=== PATIENT | male | born 1965 | race Two or more races ===

== ENCOUNTER 2020-04-14 11:54 | Inpatient (IN) | payer OTHER ==
[~2020-04-14] VITALS: Ht 188 cm; Wt 100.7 kg
[~2020-04-14 11:54] MED LIST: INTESTINEX680 MG PO; OXYC1TAB9 PO; PROTONIX40 MG PO; TAMS0.4C PO
== END 2020-04-19 20:38 | disposition home or self-care (01) | DRG 812 ==
LOC: ER 11:54 → MEDJ 18:58 → SEC-K 18:58 → MEDJ 23:30
PROVIDERS: ADMIT Internal Medicine; ATTEND Internal Medicine
PROC: 3E0F7GC Introduction of Other Therapeutic Substance into Respiratory Tract, Via Natural or Artificial Opening (ICD-10-PCS; 2020-04-14)
PROC: 30233N1 Transfusion of Nonautologous Red Blood Cells into Peripheral Vein, Percutaneous Approach (ICD-10-PCS; 2020-04-15)
PROC: BB24ZZZ Computerized Tomography (CT Scan) of Bilateral Lungs (ICD-10-PCS; principal; 2020-04-16)
PROC: BW21Y0Z Computerized Tomography (CT Scan) of Abdomen and Pelvis using Other Contrast, Unenhanced and Enhanced (ICD-10-PCS; 2020-04-16)
PROC: 8E0ZXY6 Isolation (ICD-10-PCS; 2020-04-17)
DX: D50.9 Iron deficiency anemia, unspecified (principal); D63.8 Anemia in other chronic diseases classified elsewhere; J45.20 Mild intermittent asthma, uncomplicated; Z03.818 Encounter for observation for suspected exposure to other biological agents ruled out; Z08 Encounter for follow-up examination after completed treatment for malignant neoplasm; Z85.038 Personal history of other malignant neoplasm of large intestine

== ENCOUNTER 2020-06-03 09:10 | Day surgery (SDC) | payer OTHER | END 2020-06-03 13:10 | disposition home or self-care (01) | LOC: AMB-ENDOS 09:10 | PROVIDERS: ATTEND Surgery | DX: K62.89 Other specified diseases of anus and rectum (principal); Z93.3 Colostomy status; Z20.828 Contact with and (suspected) exposure to other viral communicable diseases ==

== ENCOUNTER 2020-06-26 06:05 | Day surgery (SDC) | payer OTHER ==
[2020-06-26] MEDS ORDERED: ULTRACET PO (08:08)
== END 2020-06-26 11:30 | disposition home or self-care (01) ==
LOC: CIR.AMB 06:05
PROVIDERS: ATTEND Surgery
DX: C20 Malignant neoplasm of rectum (principal); Z20.828 Contact with and (suspected) exposure to other viral communicable diseases
CPT/HCPCS: 36561; C1751

== ENCOUNTER 2020-07-29 10:48 | Emergency (ER) | payer OTHER ==
[~2020-07-29] VITALS: Ht 188 cm; Wt 97.1 kg
[~2020-07-29 10:48] MED LIST changes: +ULTRACET PO
[2020-07-29] MEDS ORDERED: LOSARTAN POTASS50 MG (11:13)
[2020-07-29] MEDS ORDERED: FOLIC ACID1 MG (11:14)
[2020-07-29] MEDS ORDERED: FERRO-TIME325 MG (11:15)
== END 2020-07-29 19:52 | disposition home or self-care (01) ==
LOC: ER 10:48
DX: R11.2 Nausea with vomiting, unspecified (principal); R10.13 Epigastric pain; C18.9 Malignant neoplasm of colon, unspecified; Z03.818 Encounter for observation for suspected exposure to other biological agents ruled out

== ENCOUNTER 2021-05-13 16:46 | Emergency (ER) | payer OTHER ==
[~2021-05-13] VITALS: Ht 188 cm; Wt 99.8 kg
[~2021-05-13 16:46] MED LIST changes: +FERRO-TIME325 MG; +FOLIC ACID1 MG; +LOSARTAN POTASS50 MG
[2021-05-13] MEDS ORDERED: PERCOCET 5-3251 EACH PO (22:24)
== END 2021-05-13 22:36 | disposition home or self-care (01) ==
LOC: ER 16:46
DX: K62.89 Other specified diseases of anus and rectum (principal); C18.9 Malignant neoplasm of colon, unspecified; K43.5 Parastomal hernia without obstruction or gangrene; N20.0 Calculus of kidney; N28.1 Cyst of kidney, acquired
CPT/HCPCS: 74160; Q9965

== ENCOUNTER 2023-09-30 14:24 | Emergency (ER) | payer OTHER ==
[~2023-09-30] VITALS: Ht 188 cm; Wt 86.2 kg
[~2023-09-30 14:24] MED LIST changes: +PERCOCET 5-3251 EACH PO
[2023-09-30] MEDS ORDERED: B12 ACTIVE1000 MCG (15:15)
[2023-09-30] MEDS ORDERED: AMOX1TAB5 (15:15)
[2023-09-30 16:41] LABS: HEMATOCRIT 37.2 % (39.0-48.0); HEMOGLOBIN 12.4 g/dL (13-16.00); MEAN CELL VOLUME 83.1 fL (80.0-100.00); MEAN CORPUSCULAR HEMOGLOBIN 27.7 pg (27.00-32.0); MEAN CORPUSCULAR HGB CONC 33.3 g/dl (32.0-36.0); PLATELET COUNT 332 K/uL (150-450); RED BLOOD COUNT 4.48 M/uL (4.00-6.00); RED CELL DISTRIBUTION WIDTH 14.6 % (11.5-14.5)
[2023-09-30 17:09] LABS: ALBUMIN 3.1 gm/dL (3.4-5.0); BILIRUBIN TOTAL 0.3 mg/dL (0.3-1.2); CALCIUM 9.6 mg/dL (8.5-10.1); CREATININE SERUM 1.05 mg/dL (0.70-1.30); GFR 72.54; POTASSIUM 4.31 mEq/L (3.5-5.1); TOTAL PROTEIN 8.1 gm/dL (6.4-8.2)
[2023-09-30 17:45] LABS: PH,URINE 6.5 (5.0-8.0); URINE APPEARANCE Clear; URINE BILIRRUBIN Negative (NEGATIVE); URINE BLOOD Negative; URINE COLOR Dark Yellow; URINE GLUCOSE Negative (NEGATIVE); URINE LEUKOCYTE Negative; URINE NITRATE Negative; URINE PROTEIN Negative (NEGATIVE)
[2023-09-30 17:49] LABS: URINE BACTERIA 13.8 uL (0.0-1933); URINE EPITHELIAL CELLS 3.7 uL (0.0-38.8); URINE RBC 14.9 uL (0.0-20.8); URINE WBC 5.4 uL (0.0-23.2)
[2023-09-30] MEDS ORDERED: CIPRO500 MG PO (19:51)
[2023-09-30] MEDS ORDERED: TAMS0.4C PO (20:17)
== END 2023-09-30 20:53 ==
LOC: ER 14:25
PROVIDERS: Nurse Practitioner Family
DX: R59.0 Localized enlarged lymph nodes (principal); N30.90 Cystitis, unspecified without hematuria; R10.31 Right lower quadrant pain; R10.9 Unspecified abdominal pain; Z20.822 Contact with and (suspected) exposure to COVID-19; I10 Essential (primary) hypertension; Z91.013 Allergy to seafood; Z91.018 Allergy to other foods
CPT/HCPCS: 36415; 74177; Q9965

== ENCOUNTER 2023-12-08 17:16 | Inpatient (IN) | payer OTHER ==
[~2023-12-08] VITALS: Ht 188 cm; Wt 55.3 kg
[~2023-12-08 17:16] MED LIST changes: +AMOX1TAB5; +B12 ACTIVE1000 MCG; +CIPRO500 MG PO
[2023-12-08] MEDS ORDERED: 0.9 % SODIUM CHLORIDE 1,000 ML IV ONE (18:00)
[2023-12-08 18:30] LABS: HEMATOCRIT 42.1 % (39.0-48.0); HEMOGLOBIN 13.9 g/dL (13-16.00); MEAN CELL VOLUME 82.4 fL (80.0-100.00); MEAN CORPUSCULAR HEMOGLOBIN 27.3 pg (27.00-32.0); MEAN CORPUSCULAR HGB CONC 33.1 g/dl (32.0-36.0); PLATELET COUNT 322 K/uL (150-450); RED CELL DISTRIBUTION WIDTH 15.6 % (11.5-14.5)
[2023-12-08 19:06] LABS: ALBUMIN 3.1 gm/dL (3.4-5.0); BILIRUBIN TOTAL 3.01 mg/dL (0.3-1.2); BILIRUBIN,CONJUGATED 2.44 mg/dL (0.0-0.2); BILIRUBIN,UNCONJUGATED 0.57 mg/dL (0.0-0.6); CALCIUM 9.2 mg/dL (8.5-10.1); CREATININE SERUM 1.12 mg/dL (0.70-1.30); GFR 67.34; GLOBULINA 4.8 G/DL (2.4-3.5); POTASSIUM 4.41 mEq/L (3.5-5.1); TOTAL PROTEIN 7.9 gm/dL (6.4-8.2)
[2023-12-08 21:06] LABS: INR 1.06; PARTIAL THROMBOPLASTIN TIME 27.9 SECONDS (22.0-34.0); PROTHROMBIN TIME 11.1 SECONDS (9.0-11.5)
[2023-12-08 21:38] LABS: URINE APPEARANCE Clear; URINE BILIRRUBIN Moderate (NEGATIVE); URINE BLOOD Negative; URINE COLOR Dark Yellow; URINE GLUCOSE Negative (NEGATIVE); URINE LEUKOCYTE Negative; URINE NITRATE Negative; URINE PROTEIN Negative (NEGATIVE)
[2023-12-08 21:41] LABS: URINE BACTERIA 7.5 uL (0.0-1933); URINE EPITHELIAL CELLS 7.1 uL (0.0-38.8); URINE RBC 10.2 uL (0.0-20.8); URINE WBC 4.9 uL (0.0-23.2)
[2023-12-08] MEDS ORDERED: CIPROFLOXACIN HCL 500 MG TABLET PO SCH (21:41)
[2023-12-08] MEDS ORDERED: METRONIDAZOLE/SODIUM CHLORIDE 100 ML IV SCH (21:42)
[2023-12-08] MEDS ORDERED: RINGERS SOLUTION,LACTATED 1,000 ML IV SCH (21:45)
[2023-12-08] MEDS ORDERED: MORPHINE SULFATE 2 MG/ML CARTRIDGE IV PRN (22:00)
[2023-12-09 05:18] LABS: HEMATOCRIT 39.2 % (39.0-48.0); HEMOGLOBIN 13.5 g/dL (13-16.00); MEAN CELL VOLUME 82.7 fL (80.0-100.00); MEAN CORPUSCULAR HEMOGLOBIN 28.4 pg (27.00-32.0); MEAN CORPUSCULAR HGB CONC 34.3 g/dl (32.0-36.0); PLATELET COUNT 283 K/uL (150-450); RED BLOOD COUNT 4.75 M/uL (4.00-6.00); RED CELL DISTRIBUTION WIDTH 15.4 % (11.5-14.5)
[2023-12-09 05:50] LABS: ALBUMIN 2.9 gm/dL (3.4-5.0); BILIRUBIN TOTAL 3.77 mg/dL (0.3-1.2); BILIRUBIN,CONJUGATED 3.01 mg/dL (0.0-0.2); BILIRUBIN,UNCONJUGATED 0.76 mg/dL (0.0-0.6); CALCIUM 8.8 mg/dL (8.5-10.1); CREATININE SERUM 0.87 mg/dL (0.70-1.30); GFR 90.13; MAGNESIUM 1.9 mg/dL (1.8-2.4); PHOSPHOROUS 2.8 mg/dL (2.5-4.9); POTASSIUM 3.95 mEq/L (3.5-5.1); TOTAL PROTEIN 7.3 gm/dL (6.4-8.2)
[2023-12-09] MEDS ORDERED: PANTOPRAZOLE SODIUM 40 MG/VIAL VIAL IV SCH (09:00)
[2023-12-09] MEDS ORDERED: ENOXAPARIN SODIUM 40 MG/0.4 ML SYRINGE SUBCUTANEO SCH (09:00)
[2023-12-10 07:53] LABS: HEMATOCRIT 39.1 % (39.0-48.0); HEMOGLOBIN 13.1 g/dL (13-16.00); MEAN CELL VOLUME 81.7 fL (80.0-100.00); MEAN CORPUSCULAR HEMOGLOBIN 27.3 pg (27.00-32.0); MEAN CORPUSCULAR HGB CONC 33.4 g/dl (32.0-36.0); PLATELET COUNT 283 K/uL (150-450); RED BLOOD COUNT 4.79 M/uL (4.00-6.00)
[2023-12-10 08:14] LABS: ALBUMIN 2.6 gm/dL (3.4-5.0); BILIRUBIN TOTAL 5.74 mg/dL (0.3-1.2); TOTAL PROTEIN 6.9 gm/dL (6.4-8.2)
[2023-12-10 08:30] LABS: BILIRUBIN,CONJUGATED 2.64 mg/dL (0.0-0.2); BILIRUBIN,UNCONJUGATED 3.1 mg/dL (0.0-0.6)
[2023-12-10] MEDS ORDERED: CEFTRIAXONE SODIUM 2,000 MG in 0.9 % SODIUM CHLORIDE 100 ML IV SCH (09:00)
[2023-12-10] MEDS ORDERED: MULTIVIT INFUSN,ADULT 4,VIT K 10 ML VIAL IV SCH (12:50)
[2023-12-10] MEDS ORDERED: Cyanocobalamin/Mecobalamin 1 TAB.SL SL SCH (12:50)
[2023-12-10] MEDS ORDERED: AMINO ACIDS 1 EACH TABLET PO SCH (13:00)
[2023-12-10] MEDS ORDERED: OxyCODONE HCL/APAP UD (PERCOCET) PO PRN (16:00)
[2023-12-12 06:41] LABS: INR 1.06; PARTIAL THROMBOPLASTIN TIME 29.2 SECONDS (22.0-34.0)
[2023-12-12 06:46] LABS: PROTHROMBIN TIME 11.1 SECONDS (9.0-11.5)
[2023-12-12 07:20] LABS: HEMATOCRIT 39.2 % (39.0-48.0); HEMOGLOBIN 13.5 g/dL (13-16.00); MEAN CELL VOLUME 82.9 fL (80.0-100.00); MEAN CORPUSCULAR HEMOGLOBIN 28.5 pg (27.00-32.0); MEAN CORPUSCULAR HGB CONC 34.4 g/dl (32.0-36.0); PLATELET COUNT 300 K/uL (150-450); RED BLOOD COUNT 4.73 M/uL (4.00-6.00); RED CELL DISTRIBUTION WIDTH 15.7 % (11.5-14.5)
[2023-12-12 07:45] LABS: ALBUMIN 2.8 gm/dL (3.4-5.0); BILIRUBIN TOTAL 5.92 mg/dL (0.3-1.2); BILIRUBIN,CONJUGATED 5.14 mg/dL (0.0-0.2); BILIRUBIN,UNCONJUGATED 0.78 mg/dL (0.0-0.6); MAGNESIUM 1.7 mg/dL (1.8-2.4); PHOSPHOROUS 3.3 mg/dL (2.5-4.9); TOTAL PROTEIN 7.1 gm/dL (6.4-8.2)
[2023-12-12] MEDS ORDERED: MAGNESIUM SULFATE IN WATER 50 ML IV ONE (10:15)
[2023-12-12] MEDS ORDERED: METROnidazole 500 MG TABLET PO SCH (17:00)
[2023-12-13] MEDS ORDERED: PANTOPRAZOLE SODIUM 40 MG TABLET.DR PO SCH (09:00)
[2023-12-14 07:12] LABS: hav igm Negative (Negative); hcv Non Reactive (Non Reactive); hep b c Negative (Negative)
[2023-12-14] MEDS ORDERED: GLUCAGON 1 MG VIAL ONE (13:39)
[2023-12-14] MEDS ORDERED: IOVERSOL 320 MG/ML - 50 ML VIAL IV ONE ×5 (13:39→20:15)
[2023-12-14] MEDS ORDERED: GLUCAGON 1 MG VIAL IV ONE (15:00)
[2023-12-14] MEDS ORDERED: LIDOCAINE HCL/EPINEPHRINE 10MG/ML 1% 50ML IJ ONE ×2 (19:58→20:15)
[2023-12-14] MEDS ORDERED: BUPIVACAINE HCL/PF 0.5% 30ML ML ONE (19:58)
[2023-12-14] MEDS ORDERED: BUPIVACAINE HCL 30 ML VIAL IJ ONE (20:15)
[2023-12-15] MEDS ORDERED: MORPHINE SULFATE 4 MG/ML CARTRIDGE IV PRN (06:15)
[2023-12-15 06:52] LABS: HEMATOCRIT 39.3 % (39.0-48.0); MEAN CORPUSCULAR HEMOGLOBIN 27.2 pg (27.00-32.0); MEAN CORPUSCULAR HGB CONC 33.2 g/dl (32.0-36.0); PLATELET COUNT 294 K/uL (150-450); RED BLOOD COUNT 4.79 M/uL (4.00-6.00); RED CELL DISTRIBUTION WIDTH 16.6 % (11.5-14.5)
[2023-12-15 07:44] LABS: BILIRUBIN TOTAL 3.81 mg/dL (0.3-1.2); CALCIUM 9.3 mg/dL (8.5-10.1); CREATININE SERUM 0.94 mg/dL (0.70-1.30); GFR 82.43; GLOBULINA 4.5 G/DL (2.4-3.5); MAGNESIUM 1.7 mg/dL (1.8-2.4); PHOSPHOROUS 3.7 mg/dL (2.5-4.9); POTASSIUM 4.54 mEq/L (3.5-5.1); TOTAL PROTEIN 7.5 gm/dL (6.4-8.2)
[2023-12-15] MEDS ORDERED: MAGNESIUM SULFATE IN WATER 50 ML IV ONE (12:30)
[2023-12-15] MEDS ORDERED: OxyCODONE HCL/APAP UD (PERCOCET) PO PRN (12:30)
[2023-12-16 07:02] LABS: ALBUMIN 2.8 gm/dL (3.4-5.0); BILIRUBIN TOTAL 2.55 mg/dL (0.3-1.2); BILIRUBIN,CONJUGATED 2.02 mg/dL (0.0-0.2); BILIRUBIN,UNCONJUGATED 0.53 mg/dL (0.0-0.6)
[2023-12-16] MEDS ORDERED: PANTOPRAZOLE SO40 MG PO (15:24)
[2023-12-16] MEDS ORDERED: PRE PROTEIN1 EACH PO (15:24)
[2023-12-16] MEDS ORDERED: DICLOFENAC POTA25 MG PO (15:26)
[2023-12-16] MEDS ORDERED: DOLOGESIC 500-1 EACH PO (15:29)
[2023-12-16] MEDS ORDERED: LEVSIN0.125 MG PO (15:30)
== END 2023-12-16 15:36 | disposition home or self-care (01) | DRG 391 ==
LOC: ER 17:17 → MEDI 22:29
PROVIDERS: Internal Medicine Gastroenterology; Nurse Practitioner Family; Radiology Vascular & Interventional Radiology; ADMIT Internal Medicine; ATTEND Internal Medicine
PROC: BF37ZZZ Magnetic Resonance Imaging (MRI) of Pancreas (ICD-10-PCS; 2023-12-09)
PROC: 0FJB8ZZ Inspection of Hepatobiliary Duct, Via Natural or Artificial Opening Endoscopic (ICD-10-PCS; 2023-12-14)
PROC: 0F9930Z Drainage of Common Bile Duct with Drainage Device, Percutaneous Approach (ICD-10-PCS; principal; 2023-12-14 17:30)
DX: K90.49 Malabsorption due to intolerance, not elsewhere classified (principal); K83.1 Obstruction of bile duct; A09 Infectious gastroenteritis and colitis, unspecified; N17.9 Acute kidney failure, unspecified; C78.00 Secondary malignant neoplasm of unspecified lung; C77.9 Secondary and unspecified malignant neoplasm of lymph node, unspecified; C79.89 Secondary malignant neoplasm of other specified sites; C78.6 Secondary malignant neoplasm of retroperitoneum and peritoneum; C20 Malignant neoplasm of rectum; R74.01 Elevation of levels of liver transaminase levels; R59.0 Localized enlarged lymph nodes; E80.6 Other disorders of bilirubin metabolism; Z92.21 Personal history of antineoplastic chemotherapy; Z74.01 Bed confinement status; E86.0 Dehydration; L30.8 Other specified dermatitis

== ENCOUNTER 2024-03-09 09:13 | Inpatient (IN) | payer OTHER ==
[~2024-03-09] VITALS: Ht 185.4 cm; Wt 0.5 kg
[~2024-03-09 09:13] MED LIST changes: +ABATINEX680 MG; +AMLODIPINE BESYL5 MG PO; +ATIVAN2 M1 PO; +DICLOFENAC POTA25 MG PO; +DICLOFENAC POTA50 MG PO; +DOLOGESIC 500-1 EACH PO; +FENTANYL1 EAC7 TD; +INTEGRA PLUS C1 EACH PO; +INTESTINEX680 M1 PO; +LEVOTHYROXINE25 MC1; +LEVSIN0.125 MG PO; +MAGNESIUM CHLOR70 MG PO; +MAGNESIUM CITR100 MG PO; +MAGNESIUM200 MG PO; +MELATONIN5 M2 PO; +METOCLOPRAMIDE10 MG PO; +MOXIFLOXACIN H400 MG PO; +MULTIVITAMIN-M1 EACH PO; +NEURONTIN600 M1 PO; +ONDANSETRON ODT4 MG PO; +PANTOPRAZOLE SO20 MG PO; +PANTOPRAZOLE SO40 MG PO; +POLY119PG PO; +PRE PROTEIN1 EACH PO; +PROTEINEX LIQU473 ML PO; +TOPROL XL25 M1 PO; +VITAMIN B-121000 MCG PO
[2024-03-09] MEDS ORDERED: 0.9 % SODIUM CHLORIDE 1,000 ML IV STA (10:15)
[2024-03-09] MEDS ORDERED: MORPHINE SULFATE 4 MG/ML VIAL IV STA (10:16)
[2024-03-09 10:52] LABS: HEMATOCRIT 33.5 % (39.0-48.0); HEMOGLOBIN 11.6 g/dL (13-16.00); MEAN CELL VOLUME 81.1 fL (80.0-100.00); MEAN CORPUSCULAR HGB CONC 34.6 g/dl (32.0-36.0); PLATELET COUNT 754 K/uL (150-450); RED BLOOD COUNT 4.13 M/uL (4.00-6.00)
[2024-03-09 11:21] LABS: ALBUMIN 2.4 gm/dL (3.4-5.0); BILIRUBIN TOTAL 6.91 mg/dL (0.3-1.2); BILIRUBIN,CONJUGATED 5.55 mg/dL (0.0-0.2); BILIRUBIN,UNCONJUGATED 1.36 mg/dL (0.0-0.6); CALCIUM 9.7 mg/dL (8.5-10.1); CREATININE SERUM 1.65 mg/dL (0.70-1.30); GFR 42.91; POTASSIUM 4.7 mEq/L (3.5-5.1); TOTAL PROTEIN 8.7 gm/dL (6.4-8.2)
[2024-03-09 11:54] LABS: URINE APPEARANCE Cloudy; URINE BILIRRUBIN Large (NEGATIVE); URINE BLOOD Trace; URINE COLOR Dark Yellow; URINE GLUCOSE Negative (NEGATIVE); URINE LEUKOCYTE Small; URINE NITRATE Negative; URINE PROTEIN 30 (NEGATIVE); URINE UROBILINOGEN 0.2 E.U./dl
[2024-03-09 11:58] LABS: URINE BACTERIA 31.4 uL (0.0-1933); URINE EPITHELIAL CELLS 28.1 uL (0.0-38.8); URINE RBC 200.4 uL (0.0-20.8); URINE WBC 12.8 uL (0.0-23.2)
[2024-03-09 12:13] LABS: URINE CRYSTALS MODERATE /HPF; URINE YEAST NEGATIVE /hpf
[2024-03-09] MEDS ORDERED: 0.9 % SODIUM CHLORIDE 1,000 ML IV SCH (18:30)
[2024-03-09] MEDS ORDERED: ONDANSETRON HCL 4 MG in 0.9 % SODIUM CHLORIDE 50 ML IV SCH (18:44)
[2024-03-09] MEDS ORDERED: hydrALAZINE HCL 20 MG VIAL IV PRN (18:45)
[2024-03-09] MEDS ORDERED: MORPHINE SULFATE 4 MG/ML VIAL IV PRN (18:45)
[2024-03-09] MEDS ORDERED: ACETAMINOPHEN 500 MG GEL..CAP PO PRN (18:45)
[2024-03-09] MEDS ORDERED: METRONIDAZOLE/SODIUM CHLORIDE 100 ML IV SCH (18:45)
[2024-03-09] MEDS ORDERED: DOCUSATE SODIUM 100MG CAP PO SCH (18:46)
[2024-03-09] MEDS ORDERED: fentaNYL 12 MCG PATCH.TD72 TD SCH (19:00)
[2024-03-09] MEDS ORDERED: MORPHINE SULFATE 4 MG/ML CARTRIDGE IV PRN (19:30)
[2024-03-09] MEDS ORDERED: CIPROFLOXACIN IN 5 % DEXTROSE 200 ML IV SCH (21:00)
[2024-03-09] MEDS ORDERED: MELATONIN 5 MG TABLET PO SCH (21:00)
[2024-03-09] MEDS ORDERED: LORazepam 1 MG TABLET PO SCH (21:00)
[2024-03-09] MEDS ORDERED: MELATONIN 5 MG TABLET PO ONE (21:37)
[2024-03-09] MEDS ORDERED: ONDANSETRON HCL 2 MG/ML VIAL ONE (21:37)
[2024-03-09] MEDS ORDERED: CIPROFLOXACIN IN 5 % DEXTROSE 400 MG/200 ML PIGGYBAG IV ONE (21:37)
[2024-03-09] MEDS ORDERED: METRONIDAZOLE/SODIUM CHLORIDE 500 MG/100 ML PIGGYBACK IV ONE (21:38)
[2024-03-09 22:31] LABS: LDH 357 U/L (87-241); PHOSPHOKINASE CREATININE 21 U/L (39-308)
[2024-03-10] MEDS ORDERED: METRONIDAZOLE/SODIUM CHLORIDE 500 MG/100 ML PIGGYBACK IV ONE ×2 (03:38→16:24)
[2024-03-10] MEDS ORDERED: ONDANSETRON HCL 2 MG/ML VIAL ONE ×2 (03:39→16:24)
[2024-03-10 07:41] LABS: INR 1.68
[2024-03-10 07:58] LABS: ALBUMIN 2.1 gm/dL (3.4-5.0); BILIRUBIN TOTAL 6.06 mg/dL (0.3-1.2); BILIRUBIN,CONJUGATED 4.93 mg/dL (0.0-0.2); BILIRUBIN,UNCONJUGATED 1.13 mg/dL (0.0-0.6); CALCIUM 8.7 mg/dL (8.5-10.1); CREATININE SERUM 1.12 mg/dL (0.70-1.30); GFR 67.1; GLOBULINA 4.8 G/DL (2.4-3.5); POTASSIUM 4.84 mEq/L (3.5-5.1); TOTAL PROTEIN 6.9 gm/dL (6.4-8.2)
[2024-03-10 08:02] LABS: LDH 562 U/L (87-241); PHOSPHOKINASE CREATININE 33 U/L (39-308)
[2024-03-10 08:10] LABS: CHOL HDL RATIO 13.1 (0-5.0)
[2024-03-10 08:11] LABS: C-REACTIVE PROTEIN 13.2 MG/DL (0.00-0.29)
[2024-03-10 08:20] LABS: HEMATOCRIT 31.2 % (39.0-48.0); HEMOGLOBIN 10.4 g/dL (13-16.00); MEAN CELL VOLUME 82.4 fL (80.0-100.00); MEAN CORPUSCULAR HEMOGLOBIN 27.6 pg (27.00-32.0); MEAN CORPUSCULAR HGB CONC 33.5 g/dl (32.0-36.0); RED BLOOD COUNT 3.78 M/uL (4.00-6.00); RED CELL DISTRIBUTION WIDTH 17.7 % (11.5-14.5)
[2024-03-10 08:22] LABS: PLATELET COUNT 688 K/uL (150-450)
[2024-03-10 08:24] LABS: PARTIAL THROMBOPLASTIN TIME 38.7 SECONDS (22.0-34.0)
[2024-03-10] MEDS ORDERED: STIVARGA 40 MG PO SCH (09:00)
[2024-03-10] MEDS ORDERED: CYANOCOBALAMIN (VITAMIN B-12) 1,000 MCG TABLET PO SCH (09:00)
[2024-03-10] MEDS ORDERED: TAMSULOSIN HCL 0.4 MG CAP PO SCH (09:00)
[2024-03-10] MEDS ORDERED: LACTOBACILLUS ACIDOPHILUS 1 CAP CAP PO SCH (09:00)
[2024-03-10] MEDS ORDERED: MAGNESIUM CHLORIDE 70 MG TABLET.DR PO SCH (09:00)
[2024-03-10] MEDS ORDERED: AMLODIPINE BESYLATE 5 MG TABLET PO SCH (09:00)
[2024-03-10] MEDS ORDERED: IRON FUM,PS/FOLIC/BCOMP,C NO.9 1 CAP CAPSULE PO SCH (09:00)
[2024-03-10] MEDS ORDERED: METOPROLOL SUCCINATE 25 MG TAB.SR.24H PO SCH (09:00)
[2024-03-10] MEDS ORDERED: PANTOPRAZOLE SODIUM 40 MG in 0.9 % SODIUM CHLORIDE 8 ML IV PUSH SCH (09:00)
[2024-03-10] MEDS ORDERED: ENOXAPARIN SODIUM 40 MG/0.4 ML SYRINGE SUBCUTANEO SCH (09:00)
[2024-03-10 09:16] LABS: ERYTHROCYTE SEDIMENTATION RATE > 130 mm/hr
[2024-03-10] MEDS ORDERED: AMINO ACIDS 4.25 %/DEXTROSE 5% 1,000 ML PERIFERAL SCH (17:00)
[2024-03-10] MEDS ORDERED: fentaNYL 25 MCG PATCH.TD72 TD PRN (17:15)
[2024-03-10 18:13] LABS: LDH 807 U/L (87-241); PHOSPHOKINASE CREATININE 39 U/L (39-308)
[2024-03-11] MEDS ORDERED: METRONIDAZOLE/SODIUM CHLORIDE 500 MG/100 ML PIGGYBACK IV ONE (00:49)
[2024-03-11] MEDS ORDERED: ONDANSETRON HCL 2 MG/ML VIAL ONE (00:49)
[2024-03-12] MEDS ORDERED: MORPHINE SULFATE 4 MG/ML VIAL IV PRN (15:00)
[2024-03-13] MEDS ORDERED: PANTOPRAZOLE SODIUM 40 MG TABLET.DR PO SCH (09:00)
[2024-03-13] MEDS ORDERED: SERTRALINE HCL 25 MG TABLET PO SCH (09:00)
[2024-03-13] MEDS ORDERED: Cyanocobalamin/Mecobalamin 1 TAB.SL SL SCH (09:07)
[2024-03-13] MEDS ORDERED: SOD FERRIC GLUC COMPLX/SUCROSE 62.5 MG/5 ML AMPUL IV SCH (09:07)
[2024-03-13 17:14] LABS: HEMATOCRIT 32.5 % (39.0-48.0); HEMOGLOBIN 11.1 g/dL (13-16.00); MEAN CELL VOLUME 81.5 fL (80.0-100.00); MEAN CORPUSCULAR HEMOGLOBIN 27.8 pg (27.00-32.0); MEAN CORPUSCULAR HGB CONC 34.1 g/dl (32.0-36.0); PLATELET COUNT 599 K/uL (150-450); RED BLOOD COUNT 3.98 M/uL (4.00-6.00); RED CELL DISTRIBUTION WIDTH 17.6 % (11.5-14.5)
[2024-03-13 17:40] LABS: ALBUMIN 2.3 gm/dL (3.4-5.0); BILIRUBIN TOTAL 5.93 mg/dL (0.3-1.2); CALCIUM 8.8 mg/dL (8.5-10.1); CREATININE SERUM 1.02 mg/dL (0.70-1.30); GFR 74.75; GLOBULINA 5.2 G/DL (2.4-3.5); POTASSIUM 4.47 mEq/L (3.5-5.1); TOTAL PROTEIN 7.5 gm/dL (6.4-8.2)
[2024-03-13 17:58] LABS: MAGNESIUM 1.3 mg/dL (1.8-2.4)
[2024-03-13 17:59] LABS: PHOSPHOROUS 1.7 mg/dL (2.5-4.9)
[2024-03-13] MEDS ORDERED: MAGNESIUM SULFATE IN WATER 4 GM/100 ML PIGGYBACK IV NR (19:00)
[2024-03-13] MEDS ORDERED: POTASSIUM PHOS,M-BASIC-D-BASIC 3 MM/ML VIAL IV SCH (21:00)
[2024-03-14] MEDS ORDERED: MULTIVIT INFUSN,ADULT 4,VIT K 10 ML VIAL IV SCH (17:00)
[2024-03-15 08:22] LABS: HEMATOCRIT 31.4 % (39.0-48.0); HEMOGLOBIN 10.9 g/dL (13-16.00); MEAN CELL VOLUME 81.4 fL (80.0-100.00); MEAN CORPUSCULAR HEMOGLOBIN 28.1 pg (27.00-32.0); MEAN CORPUSCULAR HGB CONC 34.6 g/dl (32.0-36.0); PLATELET COUNT 567 K/uL (150-450); RED BLOOD COUNT 3.87 M/uL (4.00-6.00); RED CELL DISTRIBUTION WIDTH 18.2 % (11.5-14.5)
[2024-03-15 08:49] LABS: ALBUMIN 2.2 gm/dL (3.4-5.0); BILIRUBIN TOTAL 6.12 mg/dL (0.3-1.2); CREATININE SERUM 0.94 mg/dL (0.70-1.30); GFR 82.14; GLOBULINA 4.8 G/DL (2.4-3.5); MAGNESIUM 1.8 mg/dL (1.8-2.4); PHOSPHOROUS 2.1 mg/dL (2.5-4.9); POTASSIUM 3.95 mEq/L (3.5-5.1)
[2024-03-16] MEDS ORDERED: GABAPENTIN 600 MG TABLET PO SCH (21:00)
[2024-03-17 08:51] LABS: HEMATOCRIT 30.7 % (39.0-48.0); HEMOGLOBIN 10.3 g/dL (13-16.00); MEAN CELL VOLUME 81.9 fL (80.0-100.00); MEAN CORPUSCULAR HEMOGLOBIN 27.5 pg (27.00-32.0); MEAN CORPUSCULAR HGB CONC 33.6 g/dl (32.0-36.0); PLATELET COUNT 479 K/uL (150-450); RED BLOOD COUNT 3.74 M/uL (4.00-6.00); RED CELL DISTRIBUTION WIDTH 17.8 % (11.5-14.5)
[2024-03-17 08:55] LABS: BILIRUBIN TOTAL 6.03 mg/dL (0.3-1.2); CALCIUM 8.1 mg/dL (8.5-10.1); CREATININE SERUM 0.8 mg/dL (0.70-1.30); GFR 98.94; GLOBULINA 4.5 G/DL (2.4-3.5); PHOSPHOROUS 2.1 mg/dL (2.5-4.9); POTASSIUM 3.72 mEq/L (3.5-5.1); TOTAL PROTEIN 6.5 gm/dL (6.4-8.2)
[2024-03-17 08:57] LABS: MAGNESIUM 1.4 mg/dL (1.8-2.4)
[2024-03-17] MEDS ORDERED: CEFTRIAXONE SODIUM 2,000 MG VIAL IV SCH (10:14)
[2024-03-17] MEDS ORDERED: SOD PHOSPHATE,MONOBASIC-DIBAS 3 MMOL/ML VIAL IV NR (10:15)
[2024-03-17] MEDS ORDERED: MAGNESIUM SULFATE IN WATER 50 ML IV NR (11:24)
[2024-03-19 08:29] LABS: INR 1.14; PARTIAL THROMBOPLASTIN TIME 34.2 SECONDS (22.0-34.0); PROTHROMBIN TIME 11.9 SECONDS (9.0-11.5)
[2024-03-19 08:40] LABS: HEMATOCRIT 29.8 % (39.0-48.0); MEAN CELL VOLUME 80.4 fL (80.0-100.00); MEAN CORPUSCULAR HGB CONC 33.5 g/dl (32.0-36.0); PLATELET COUNT 428 K/uL (150-450); RED BLOOD COUNT 3.71 M/uL (4.00-6.00); RED CELL DISTRIBUTION WIDTH 18.1 % (11.5-14.5)
[2024-03-19 08:44] LABS: ALBUMIN 1.9 gm/dL (3.4-5.0); BILIRUBIN TOTAL 5.44 mg/dL (0.3-1.2); BILIRUBIN,CONJUGATED 4.58 mg/dL (0.0-0.2); BILIRUBIN,UNCONJUGATED 0.86 mg/dL (0.0-0.6); CALCIUM 7.9 mg/dL (8.5-10.1); CHOL HDL RATIO 11.8 (0-5.0); CREATININE SERUM 0.75 mg/dL (0.70-1.30); GFR 106.59; GLOBULINA 4.4 G/DL (2.4-3.5); MAGNESIUM 1.5 mg/dL (1.8-2.4); POTASSIUM 3.16 mEq/L (3.5-5.1); TOTAL PROTEIN 6.3 gm/dL (6.4-8.2)
[2024-03-19 09:09] LABS: PHOSPHOROUS 1.9 mg/dL (2.5-4.9)
[2024-03-19 09:12] LABS: UREA CLEARANCE 29.5 ML/MIN
[2024-03-19] MEDS ORDERED: fentaNYL 25 MCG PATCH.TD72 TD SCH (10:15)
[2024-03-19] MEDS ORDERED: MAGNESIUM SULFATE IN WATER 4 GM/100 ML PIGGYBACK IV STA (10:59)
[2024-03-19] MEDS ORDERED: POTASSIUM CHLORIDE 20MEQ/100ML H2O PB IV NR (11:00)
[2024-03-19] MEDS ORDERED: POTASSIUM PHOS,M-BASIC-D-BASIC 3 MM/ML VIAL IV ONE (12:00)
[2024-03-19] MEDS ORDERED: POTASSIUM BICARBONATE/CIT AC 25 MEQ TABLET.EFF PO SCH (13:00)
[2024-03-19] MEDS ORDERED: LACTULOSE 20 G/30 ML BLIST.PACK PO SCH (17:00)
[2024-03-20 07:26] LABS: ALBUMIN 1.8 gm/dL (3.4-5.0); BILIRUBIN TOTAL 5.2 mg/dL (0.3-1.2); CALCIUM 8.1 mg/dL (8.5-10.1); CREATININE SERUM 0.73 mg/dL (0.70-1.30); GFR 109.97; GLOBULINA 4.3 G/DL (2.4-3.5); POTASSIUM 3.77 mEq/L (3.5-5.1); TOTAL PROTEIN 6.1 gm/dL (6.4-8.2)
[2024-03-20 07:27] LABS: PHOSPHOROUS 1.5 mg/dL (2.5-4.9)
[2024-03-20] MEDS ORDERED: NAPH,MB-DB/K PH,MBDB 1 PKT PACKET PO SCH ×2 (09:00→17:00)
[2024-03-20] MEDS ORDERED: POTASSIUM PHOS,M-BASIC-D-BASIC 3 MM/ML VIAL IV SCH (10:41)
[2024-03-20] MEDS ORDERED: RINGERS SOLUTION,LACTATED 1,000 ML IV SCH (10:45)
[2024-03-20] MEDS ORDERED: POTASSIUM PHOS,M-BASIC-D-BASIC 3 MM/ML VIAL IV ONE (12:00)
[2024-03-21] MEDS ORDERED: SOD FERRIC GLUC COMPLX/SUCROSE 62.5 MG/5 ML AMPUL IV SCH (09:00)
[2024-03-22 08:03] LABS: HEMATOCRIT 28.4 % (39.0-48.0); HEMOGLOBIN 9.6 g/dL (13-16.00); MEAN CELL VOLUME 80.9 fL (80.0-100.00); MEAN CORPUSCULAR HEMOGLOBIN 27.3 pg (27.00-32.0); MEAN CORPUSCULAR HGB CONC 33.8 g/dl (32.0-36.0); PLATELET COUNT 404 K/uL (150-450); RED BLOOD COUNT 3.51 M/uL (4.00-6.00); RED CELL DISTRIBUTION WIDTH 18.8 % (11.5-14.5)
[2024-03-22 08:21] LABS: ALBUMIN 1.9 gm/dL (3.4-5.0); BILIRUBIN TOTAL 5.68 mg/dL (0.3-1.2); CALCIUM 8.2 mg/dL (8.5-10.1); CREATININE SERUM 0.72 mg/dL (0.70-1.30); GFR 111.73; GLOBULINA 4.4 G/DL (2.4-3.5); MAGNESIUM 1.6 mg/dL (1.8-2.4); PHOSPHOROUS 2.1 mg/dL (2.5-4.9); POTASSIUM 3.7 mEq/L (3.5-5.1); TOTAL PROTEIN 6.3 gm/dL (6.4-8.2)
[2024-03-22] MEDS ORDERED: MAGNESIUM SULFATE IN WATER 4 GM/100 ML PIGGYBACK IV NR (10:30)
[2024-03-22] MEDS ORDERED: 0.9 % SODIUM CHLORIDE 1,000 ML IV SCH (10:30)
[2024-03-22] MEDS ORDERED: POTASSIUM PHOS,M-BASIC-D-BASIC 3 MM/ML VIAL IV SCH (17:00)
[2024-03-22] MEDS ORDERED: FAMOTIDINE/PF 20 MG/2 ML VIAL IV PUSH NR (19:15)
[2024-03-23] MEDS ORDERED: FUROsemide 20 MG/2 ML VIAL IV SCH (13:30)
[2024-03-23] MEDS ORDERED: METOCLOPRAMIDE HCL 5 MG/ML VIAL IV STA (15:01)
[2024-03-23] MEDS ORDERED: ONDANSETRON HCL 4 MG in DEXTROSE 5 % IN WATER 50 ML IV PRN (15:15)
[2024-03-23] MEDS ORDERED: METOCLOPRAMIDE HCL 5 MG/ML VIAL IV PRN (15:15)
[2024-03-23] MEDS ORDERED: AMINO ACIDS/PROTEIN HYDROLYS 30 ML BLIST.PACK PO SCH (17:00)
[2024-03-23] MEDS ORDERED: SOD FERRIC GLUC COMPLX/SUCROSE 62.5 MG/5 ML AMPUL IV SCH (20:38)
[2024-03-23] MEDS ORDERED: THIAMINE HCL 100 MG/ML 2 ML VIAL IV SCH (20:38)
[2024-03-24] MEDS ORDERED: LACTULOSE 20 G/30 ML BLIST.PACK PO SCH (09:00)
[2024-03-24] MEDS ORDERED: SERTRALINE HCL 50 MG TABLET PO SCH (09:00)
[2024-03-25 10:20] LABS: HEMATOCRIT 36.3 % (39.0-48.0); HEMOGLOBIN 12.6 g/dL (13-16.00); MEAN CELL VOLUME 81.7 fL (80.0-100.00); MEAN CORPUSCULAR HEMOGLOBIN 28.3 pg (27.00-32.0); MEAN CORPUSCULAR HGB CONC 34.6 g/dl (32.0-36.0); PLATELET COUNT 475 K/uL (150-450); RED BLOOD COUNT 4.44 M/uL (4.00-6.00)
[2024-03-25 11:02] LABS: ALBUMIN 2.1 gm/dL (3.4-5.0); BILIRUBIN TOTAL 8.88 mg/dL (0.3-1.2); CALCIUM 8.7 mg/dL (8.5-10.1); CREATININE SERUM 0.99 mg/dL (0.70-1.30); GFR 77.37; MAGNESIUM 1.8 mg/dL (1.8-2.4); PHOSPHOROUS 3.4 mg/dL (2.5-4.9); POTASSIUM 3.66 mEq/L (3.5-5.1); TOTAL PROTEIN 7.1 gm/dL (6.4-8.2)
[2024-03-25] MEDS ORDERED: fentaNYL 25 MCG PATCH.TD72 TD SCH (16:00)
[2024-03-25] MEDS ORDERED: RINGERS SOLUTION,LACTATED 1,000 ML IV SCH (16:00)
[2024-03-26] MEDS ORDERED: CEFTRIAXONE SODIUM 2,000 MG VIAL IV SCH (12:00)
[2024-03-26] MEDS ORDERED: MORPHINE SULFATE 4 MG/ML CARTRIDGE IV PRN (12:15)
[2024-03-26] MEDS ORDERED: METRONIDAZOLE/SODIUM CHLORIDE 100 ML IV SCH (13:00)
[2024-03-27] MEDS ORDERED: IOVERSOL 320 MG/ML - 50 ML VIAL IV ONE (01:30)
[2024-03-27] MEDS ORDERED: LIDOCAINE HCL 1% 20ML VIAL IJ ONE (01:30)
[2024-03-28] MEDS ORDERED: METOPROLOL SUCCINATE 50 MG TAB.SR.24H PO SCH (09:00)
[2024-03-28 09:31] LABS: HEMATOCRIT 35.5 % (39.0-48.0); MEAN CELL VOLUME 83.9 fL (80.0-100.00); MEAN CORPUSCULAR HEMOGLOBIN 28.4 pg (27.00-32.0); MEAN CORPUSCULAR HGB CONC 33.8 g/dl (32.0-36.0); PLATELET COUNT 495 K/uL (150-450); RED BLOOD COUNT 4.23 M/uL (4.00-6.00); RED CELL DISTRIBUTION WIDTH 19.2 % (11.5-14.5)
[2024-03-28 10:37] LABS: BILIRUBIN TOTAL 8.89 mg/dL (0.3-1.2); CALCIUM 8.9 mg/dL (8.5-10.1); CREATININE SERUM 0.92 mg/dL (0.70-1.30); GFR 84.2; GLOBULINA 4.6 G/DL (2.4-3.5); MAGNESIUM 2.1 mg/dL (1.8-2.4); PHOSPHOROUS 2.6 mg/dL (2.5-4.9); POTASSIUM 4.16 mEq/L (3.5-5.1); TOTAL PROTEIN 6.6 gm/dL (6.4-8.2)
[2024-03-30] MEDS ORDERED: LORazepam 1 MG TABLET PO SCH (21:45)
[2024-03-31] MEDS ORDERED: fentaNYL 50 MCG PATCH.TD72 TD SCH (09:00)
[2024-04-01] MEDS ORDERED: MORPHINE SULFATE 2 MG/ML CARTRIDGE IV PRN (10:15)
[2024-04-01] MEDS ORDERED: ONDANSETRON HCL 2 MG/ML VIAL IV SCH (13:00)
[2024-04-01] MEDS ORDERED: MULTIVIT INFUSN,ADULT 4,VIT K 10 ML VIAL IV SCH (17:00)
[2024-04-02 07:37] LABS: HEMATOCRIT 35.3 % (39.0-48.0); HEMOGLOBIN 11.9 g/dL (13-16.00); MEAN CELL VOLUME 84.6 fL (80.0-100.00); MEAN CORPUSCULAR HEMOGLOBIN 28.5 pg (27.00-32.0); MEAN CORPUSCULAR HGB CONC 33.7 g/dl (32.0-36.0); PLATELET COUNT 466 K/uL (150-450); RED BLOOD COUNT 4.18 M/uL (4.00-6.00); RED CELL DISTRIBUTION WIDTH 20.7 % (11.5-14.5)
[2024-04-02 08:23] LABS: ALBUMIN 2.1 gm/dL (3.4-5.0); BILIRUBIN TOTAL 9.74 mg/dL (0.3-1.2); CALCIUM 8.8 mg/dL (8.5-10.1); CREATININE SERUM 1.2 mg/dL (0.70-1.30); GFR 61.97; GLOBULINA 4.6 G/DL (2.4-3.5); POTASSIUM 3.6 mEq/L (3.5-5.1); TOTAL PROTEIN 6.7 gm/dL (6.4-8.2)
[2024-04-03] MEDS ORDERED: METRONIDAZOLE/SODIUM CHLORIDE 500 MG/100 ML PIGGYBACK IV SCH (01:00)
[2024-04-03] MEDS ORDERED: CEFTRIAXONE SODIUM 2,000 MG VIAL IV SCH (09:00)
[2024-04-03] MEDS ORDERED: TAMS0.4C PO (11:57)
[2024-04-03] MEDS ORDERED: AMLODIPINE BESYL5 MG PO (11:58)
[2024-04-03] MEDS ORDERED: TOPROL XL50 M1 PO (11:58)
[2024-04-03] MEDS ORDERED: NEURONTIN600 MG PO (11:58)
[2024-04-03] MEDS ORDERED: LORAZEPAM1 MG PO (11:58)
[2024-04-03] MEDS ORDERED: LACTULOSE10 GM/152 PO (11:59)
[2024-04-03] MEDS ORDERED: SERTRALINE HCL50 MG PO (11:59)
[2024-04-03] MEDS ORDERED: MAGNESIUM CHLOR70 MG PO (11:59)
[2024-04-03] MEDS ORDERED: INTESTINEX680 M1 PO (11:59)
[2024-04-03] MEDS ORDERED: PANTOPRAZOLE SO40 MG PO (12:00)
[2024-04-03] MEDS ORDERED: MELATONIN5 M2 PO (12:00)
[2024-04-03] MEDS ORDERED: VITAMIN B-121000 MCG PO (12:00)
[2024-04-03] MEDS ORDERED: PROTEINEX-18 LI30 ML PO (12:00)
[2024-04-03] MEDS ORDERED: ZOFRAN8 MG PO (12:01)
[2024-04-03] MEDS ORDERED: INTEGRA PLUS C1 EACH PO (12:01)
[2024-04-03] MEDS ORDERED: PERCOCET 5-3251 EACH PO (12:02)
== END 2024-04-03 16:07 | disposition home or self-care (01) | DRG 375 ==
LOC: ER 09:13 → SURH 20:23 → SEC-K 20:23 → SURH 03-12 14:48
PROVIDERS: General Practice; Internal Medicine Hematology & Oncology; Radiology Vascular & Interventional Radiology; ADMIT Internal Medicine; ATTEND Internal Medicine
PROC: BW21ZZZ Computerized Tomography (CT Scan) of Abdomen and Pelvis (ICD-10-PCS; 2024-03-09)
PROC: 02HV33Z Insertion of Infusion Device into Superior Vena Cava, Percutaneous Approach (ICD-10-PCS; 2024-03-10)
PROC: 30233N1 Transfusion of Nonautologous Red Blood Cells into Peripheral Vein, Percutaneous Approach (ICD-10-PCS; 2024-03-23)
PROC: 0F2 Hepatobiliary System and Pancreas, Change (ICD-10-PCS; 2024-03-26)
PROC: 0F2BX0Z Change Drainage Device in Hepatobiliary Duct, External Approach (ICD-10-PCS; 2024-03-26)
PROC: 0F9730Z Drainage of Common Hepatic Duct with Drainage Device, Percutaneous Approach (ICD-10-PCS; 2024-03-26)
PROC: 0F9G30Z Drainage of Pancreas with Drainage Device, Percutaneous Approach (ICD-10-PCS; principal; 2024-03-26 22:00)
DX: C18.9 Malignant neoplasm of colon, unspecified (principal); C78.89 Secondary malignant neoplasm of other digestive organs; C79.89 Secondary malignant neoplasm of other specified sites; N17.9 Acute kidney failure, unspecified; K86.3 Pseudocyst of pancreas; E87.1 Hypo-osmolality and hyponatremia; E86.0 Dehydration; G89.3 Neoplasm related pain (acute) (chronic); D63.0 Anemia in neoplastic disease; K86.9 Disease of pancreas, unspecified; F32.9 Major depressive disorder, single episode, unspecified; B96.20 Unspecified Escherichia coli [E. coli] as the cause of diseases classified elsewhere; B95.2 Enterococcus as the cause of diseases classified elsewhere; B96.89 Other specified bacterial agents as the cause of diseases classified elsewhere

== ENCOUNTER 2024-04-09 23:46 | Inpatient (IN) | payer OTHER ==
[~2024-04-09] VITALS: Ht 170.2 cm; Wt 45.4 kg
[~2024-04-09 23:46] MED LIST changes: +LACTULOSE10 GM/152 PO; +LORAZEPAM1 MG PO; +NEURONTIN600 MG PO; +PROTEINEX-18 LI30 ML PO; +SERTRALINE HCL50 MG PO; +TOPROL XL50 M1 PO; +ZOFRAN8 MG PO
[2024-04-10] MEDS ORDERED: 0.9 % SODIUM CHLORIDE 1,000 ML IV STA ×2 (00:29→10:38)
[2024-04-10] MEDS ORDERED: ALBUTEROL SULFATE 3 ML/2.5 MG AMPUL.NEB IH SCH (01:01)
[2024-04-10] MEDS ORDERED: ALBUTEROL SULFATE 3 ML/2.5 MG AMPUL.NEB IH ONE ×4 (01:03→16:49)
[2024-04-10 01:42] LABS: INR 2.27
[2024-04-10 01:47] LABS: HEMATOCRIT 38.3 % (39.0-48.0); HEMOGLOBIN 13.2 g/dL (13-16.00); MEAN CELL VOLUME 84.2 fL (80.0-100.00); MEAN CORPUSCULAR HGB CONC 34.4 g/dl (32.0-36.0); RED BLOOD COUNT 4.55 M/uL (4.00-6.00); RED CELL DISTRIBUTION WIDTH 21.5 % (11.5-14.5)
[2024-04-10 01:53] LABS: PLATELET COUNT 490 K/uL (150-450)
[2024-04-10 01:54] LABS: PROTHROMBIN TIME 22.4 SECONDS (9.0-11.5)
[2024-04-10 01:58] LABS: ALBUMIN 1.9 gm/dL (3.4-5.0); CALCIUM 9.2 mg/dL (8.5-10.1); GFR 19.42; GLOBULINA 4.9 G/DL (2.4-3.5); POTASSIUM 4.74 mEq/L (3.5-5.1); TOTAL PROTEIN 6.8 gm/dL (6.4-8.2)
[2024-04-10 02:00] LABS: BILIRUBIN TOTAL 15.53 mg/dL (0.3-1.2); CREATININE SERUM 3.28 mg/dL (0.70-1.30)
[2024-04-10 05:47] LABS: ABG PH 7.398 (7.35-7.45); ABG pCO2 34.5 mmHg (35-45)
[2024-04-10 05:48] LABS: ABG PO2 100.4 mmHg (80-100); BASE EXCESS -3.2 mmol/l; BICARBONATE 20.8 mmol/l (23-25); SaO2 97.7 %; Tco2 21.8 mmol/l; allen test SATISFACTORY; o2 32 %; puncture site RADIAL RIGHT
[2024-04-10] MEDS ORDERED: FAMOTIDINE/PF 20 MG/2 ML VIAL IV SCH (10:40)
[2024-04-10] MEDS ORDERED: CEFTRIAXONE SODIUM 2,000 MG VIAL IV SCH (10:43)
[2024-04-10] MEDS ORDERED: ONDANSETRON HCL 4 MG in DEXTROSE 5 % IN WATER 50 ML IV PRN (10:45)
[2024-04-10] MEDS ORDERED: fentaNYL 50 MCG PATCH.TD72 TD SCH (11:00)
[2024-04-10] MEDS ORDERED: MORPHINE SULFATE 2 MG/ML CARTRIDGE IV PRN (11:00)
[2024-04-10] MEDS ORDERED: METOCLOPRAMIDE HCL 10 MG in 0.9 % SODIUM CHLORIDE 50 ML IV SCH (12:00)
[2024-04-10] MEDS ORDERED: CEFTRIAXONE SODIUM 2,000 MG VIAL ONE (12:25)
[2024-04-10] MEDS ORDERED: METOCLOPRAMIDE HCL 5 MG/ML VIAL ONE ×2 (12:25→17:12)
[2024-04-10] MEDS ORDERED: METRONIDAZOLE/SODIUM CHLORIDE 500 MG/100 ML PIGGYBACK IV ONE (12:25)
[2024-04-10] MEDS ORDERED: FAMOtidine 200mg/20ml VIAL ONE (12:26)
[2024-04-10] MEDS ORDERED: RINGERS SOLUTION,LACTATED 1,000 ML IV STA (12:38)
[2024-04-10] MEDS ORDERED: METRONIDAZOLE/SODIUM CHLORIDE 100 ML IV SCH (13:00)
[2024-04-10] MEDS ORDERED: RINGERS SOLUTION,LACTATED 1,000 ML IV SCH (13:15)
[2024-04-10 13:47] LABS: URINE APPEARANCE Turbid; URINE BILIRRUBIN Large (NEGATIVE); URINE COLOR Dark Yellow; URINE GLUCOSE Negative (NEGATIVE); URINE KETONE Negative (NEGATIVE); URINE LEUKOCYTE Small; URINE NITRATE Positive; URINE PROTEIN 30 (NEGATIVE); URINE UROBILINOGEN 0.2 E.U./dl
[2024-04-10 13:49] LABS: URINE BACTERIA 26.4 uL (0.0-1933); URINE CAST 1.67 uL (0.0-1.40); URINE EPITHELIAL CELLS 28.4 uL (0.0-38.8); URINE RBC 344.7 uL (0.0-20.8)
[2024-04-10 14:00] LABS: URINE BLOOD TRACE; URINE CRYSTALS FEW /HPF
[2024-04-10 14:02] LABS: CALCIUM 9.1 mg/dL (8.5-10.1); CHOL HDL RATIO 11.4 (0-5.0); CREATININE SERUM 3.47 mg/dL (0.70-1.30); GFR 18.2; POTASSIUM 5.18 mEq/L (3.5-5.1)
[2024-04-10] MEDS ORDERED: AMINO ACIDS 4.25 %/DEXTROSE 5% 1,000 ML PERIFERAL SCH (17:00)
[2024-04-11 07:56] LABS: HEMATOCRIT 33.6 % (39.0-48.0); HEMOGLOBIN 11.2 g/dL (13-16.00); MEAN CORPUSCULAR HEMOGLOBIN 28.4 pg (27.00-32.0); MEAN CORPUSCULAR HGB CONC 33.4 g/dl (32.0-36.0); PLATELET COUNT 356 K/uL (150-450); RED BLOOD COUNT 3.95 M/uL (4.00-6.00); RED CELL DISTRIBUTION WIDTH 22.3 % (11.5-14.5)
[2024-04-11 08:24] LABS: ALBUMIN 1.9 gm/dL (3.4-5.0); CALCIUM 8.8 mg/dL (8.5-10.1); CREATININE SERUM 3.45 mg/dL (0.70-1.30); GFR 18.32; GLOBULINA 4.5 G/DL (2.4-3.5); MAGNESIUM 2.1 mg/dL (1.8-2.4); PHOSPHOROUS 4.5 mg/dL (2.5-4.9); POTASSIUM 5.18 mEq/L (3.5-5.1); TOTAL PROTEIN 6.4 gm/dL (6.4-8.2)
[2024-04-11 08:25] LABS: BILIRUBIN TOTAL 14.13 mg/dL (0.3-1.2)
[2024-04-11] MEDS ORDERED: ENOXAPARIN SODIUM 30 MG/0.3 ML SYRINGE SUBCUTANEO SCH (09:00)
[2024-04-11] MEDS ORDERED: SODIUM POLYSTYRENE SULFONATE 30G/8 TSP PO SCH (12:00)
[2024-04-11] MEDS ORDERED: LINEZOLID IN DEXTROSE 5% 300 ML IV SCH (12:46)
[2024-04-11] MEDS ORDERED: METOPROLOL SUCCINATE 25 MG TAB.SR.24H PO SCH (17:00)
[2024-04-12] MEDS ORDERED: FAMOTIDINE/PF 20 MG/2 ML VIAL IV SCH (09:00)
[2024-04-15 07:13] LABS: ALBUMIN 1.3 gm/dL (3.4-5.0); BILIRUBIN TOTAL 8.78 mg/dL (0.3-1.2); CALCIUM 8.2 mg/dL (8.5-10.1); CREATININE SERUM 3.6 mg/dL (0.70-1.30); GFR 17.44; GLOBULINA 3.7 G/DL (2.4-3.5); MAGNESIUM 1.6 mg/dL (1.8-2.4); PHOSPHOROUS 2.6 mg/dL (2.5-4.9); POTASSIUM 3.35 mEq/L (3.5-5.1)
[2024-04-15 07:53] LABS: HEMATOCRIT 31.4 % (39.0-48.0); HEMOGLOBIN 10.5 g/dL (13-16.00); MEAN CELL VOLUME 84.8 fL (80.0-100.00); MEAN CORPUSCULAR HEMOGLOBIN 28.5 pg (27.00-32.0); MEAN CORPUSCULAR HGB CONC 33.5 g/dl (32.0-36.0); PLATELET COUNT 321 K/uL (150-450); RED BLOOD COUNT 3.71 M/uL (4.00-6.00); RED CELL DISTRIBUTION WIDTH 22.4 % (11.5-14.5)
[2024-04-15] MEDS ORDERED: MAGNESIUM SULFATE IN WATER 4 GM/100 ML PIGGYBACK IV SCH (12:00)
[2024-04-15] MEDS ORDERED: 0.9 % SODIUM CHLORIDE 1,000 ML IV STA (12:08)
[2024-04-15] MEDS ORDERED: POTASSIUM CHLORIDE 20MEQ/100ML H2O PB IV NR (12:15)
[2024-04-16 06:55] LABS: HEMATOCRIT 30.5 % (39.0-48.0); MEAN CELL VOLUME 84.3 fL (80.0-100.00); MEAN CORPUSCULAR HEMOGLOBIN 28.4 pg (27.00-32.0); MEAN CORPUSCULAR HGB CONC 33.6 g/dl (32.0-36.0); PLATELET COUNT 298 K/uL (150-450); RED BLOOD COUNT 3.62 M/uL (4.00-6.00); RED CELL DISTRIBUTION WIDTH 23.1 % (11.5-14.5)
[2024-04-16 06:56] LABS: HEMOGLOBIN 10.3 g/dL (13-16.00)
[2024-04-16 06:57] LABS: INR 2.57
[2024-04-16 07:06] LABS: PROTHROMBIN TIME 25.2 SECONDS (9.0-11.5)
[2024-04-16 07:07] LABS: PARTIAL THROMBOPLASTIN TIME 59.3 SECONDS (22.0-34.0)
[2024-04-16 07:23] LABS: ALBUMIN 1.3 gm/dL (3.4-5.0); BILIRUBIN TOTAL 9.12 mg/dL (0.3-1.2); BILIRUBIN,CONJUGATED 7.32 mg/dL (0.0-0.2); BILIRUBIN,UNCONJUGATED 1.8 mg/dL (0.0-0.6); CALCIUM 8.3 mg/dL (8.5-10.1); CHOL HDL RATIO 7.2 (0-5.0); CREATININE SERUM 3.52 mg/dL (0.70-1.30); GFR 17.9; GLOBULINA 3.5 G/DL (2.4-3.5); MAGNESIUM 2.2 mg/dL (1.8-2.4); POTASSIUM 3.51 mEq/L (3.5-5.1); TOTAL PROTEIN 4.8 gm/dL (6.4-8.2)
[2024-04-16] MEDS ORDERED: levoFLOXacin IN DEXTROSE 5 % 5 MG/ML PIGGYBAG IV NR (17:01)
[2024-04-18] MEDS ORDERED: levoFLOXacin IN DEXTROSE 5 % 500MG/100ML PIGGYBAG IV SCH (09:00)
[2024-04-18] MEDS ORDERED: METRONIDAZOLE500 MG PO (11:11)
[2024-04-18] MEDS ORDERED: LINEZOLID600 MG PO (11:11)
[2024-04-18] MEDS ORDERED: LEVOFLOXACIN500 MG PO (11:11)
[2024-04-18] MEDS ORDERED: FENTANYL1 EAC3 TD (11:14)
[2024-04-18] MEDS ORDERED: fentaNYL 25 MCG PATCH.TD72 TD SCH (17:00)
== END 2024-04-20 14:39 | disposition expired | DRG 871 ==
LOC: ER 23:46 → MEDI 04-10 11:01 → SEC-K 04-10 11:01 → MEDI 04-10 14:34
PROVIDERS: ADMIT Internal Medicine; ATTEND Internal Medicine
PROC: BW21ZZZ Computerized Tomography (CT Scan) of Abdomen and Pelvis (ICD-10-PCS; principal; 2024-04-10)
PROC: 02HV33Z Insertion of Infusion Device into Superior Vena Cava, Percutaneous Approach (ICD-10-PCS; 2024-04-10)
PROC: 3E0F7GC Introduction of Other Therapeutic Substance into Respiratory Tract, Via Natural or Artificial Opening (ICD-10-PCS; 2024-04-10)
DX: A41.9 Sepsis, unspecified organism (principal); R65.21 Severe sepsis with septic shock; C20 Malignant neoplasm of rectum; K92.0 Hematemesis; J45.20 Mild intermittent asthma, uncomplicated; Z93.3 Colostomy status; D72.828 Other elevated white blood cell count; L89.152 Pressure ulcer of sacral region, stage 2; D63.0 Anemia in neoplastic disease; Z66 Do not resuscitate; E87.6 Hypokalemia; E80.6 Other disorders of bilirubin metabolism; R13.19 Other dysphagia; R59.0 Localized enlarged lymph nodes